=== PATIENT | male | born 1935 | race African-American/Black ===

== ENCOUNTER 2016-05-08 12:36 | Outpatient (CLI) | payer MEDICARE ==
[2016-05-08 13:44] LABS: ALT (SGPT) 14 U/L (0-55); AST (SGOT) 16 U/L (5-34); Alkaline Phosphatase 75 U/L (40-150); Anion Gap 14 mmol/L (10-20); BUN (Urea Nitrogen) 13 mg/dL (8.4-25.7); Bilirubin, Total 0.6 mg/dL (0.2-1.2); Calc. Creatinine Clearance 0 mL/min (70-130); Calcium 9.6 mg/dL (7.8-10.44); Carbon Dioxide 28 mmol/L (23-31); Chloride 102 mmol/L (98-107); Estimated GFR-MDRD 78; Globulin 3.7 g/dL (2.4-3.5); LDL Cholesterol, Calculated 97 mg/dL; Protein, Total 7.4 g/dL (5.8-8.1)
[2016-05-08 17:03] LABS: Iron 51 ug/dL (65-175)
[2016-05-08 21:11] LABS: #Eosinphils 0.1 thou/uL (0.0-0.7); #Monocytes 0.5 thou/uL (0.11-0.59); %Basophils 0.8 % (0.0-1.0); %Eosinophils 2.1 % (0.0-10.0); %Monocytes 8.6 % (0.0-10.0); Hematocrit 40.2 % (42.0-52.0); Mean Platelet Volume 12.6 fL (7.4-10.4); Red Blood Cell (RBC) Count 4.28 mill/uL (4.70-6.10); White Blood Cell (WBC) Count 5.7 thou/uL (4.8-10.8)
[2016-05-10 14:02] LABS: Iron 51 ug/dL (65-175)
== END 2016-05-08 12:37 | disposition home or self-care (01) ==
LOC: BURLAB 12:36
PROVIDERS: ATTEND Family Medicine
DX: Z12.5 Encounter for screening for malignant neoplasm of prostate (principal); B02.9 Zoster without complications; D64.9 Anemia, unspecified; K76.9 Liver disease, unspecified; M54.5 Low back pain
CPT/HCPCS: 36415; 80053; 80061; 83540; 83550; 84443; 85025; G0103

== ENCOUNTER 2016-05-15 11:12 | Outpatient (CLI) | payer MEDICARE ==
[2016-05-15 11:40] LABS: Hemoglobin A1c 5.6 % (4.0-6.0)
== END 2016-05-15 11:13 | disposition home or self-care (01) ==
LOC: BURLAB 11:12
PROVIDERS: ATTEND Family Medicine
DX: R73.09 Other abnormal glucose (principal)
CPT/HCPCS: 36415; 83036